=== PATIENT | female | born 1985 | race Caucasian/White ===

== ENCOUNTER → 2020-04-30 | Outpatient (CLI) | payer MEDICAID | END | disposition home or self-care (01) | LOC: Rad HDHVI 13:12 | PROVIDERS: ATTEND Internal Medicine Cardiovascular Disease | DX: R94.31 Abnormal electrocardiogram [ECG] [EKG] (principal); R07.89 Other chest pain | CPT/HCPCS: 93306 ==

== ENCOUNTER → 2020-05-07 | Outpatient (CLI) | payer MEDICAID ==
[~2020-05-07] VITALS: Ht 170.2 cm; Wt 171.5 kg
[~2020-05-07] MED LIST: ADENOSINE 90 MG/30 ML INJ IV ONE; ADENOSINE IV ONE; GIVE UN DILUTED IV ONE
== END | disposition home or self-care (01) ==
LOC: Rad HDHVI 13:57
PROVIDERS: ATTEND Internal Medicine Cardiovascular Disease
DX: R94.31 Abnormal electrocardiogram [ECG] [EKG] (principal); Z88.5 Allergy status to narcotic agent
CPT/HCPCS: 78452; 93005; 96374; 96375; A9500; J0153